=== PATIENT | male | born 1990 | race Caucasian/White ===

== ENCOUNTER 2018-06-02 03:33 | Emergency (ER) | payer MEDICAID ==
[~2018-06-02] VITALS: Ht 170.2 cm; Wt 61.2 kg
[2018-06-02 04:08] VITALS: BP_SYST 125
[2018-06-02 05:21] VITALS: BP_SYST 125
== END 2018-06-02 05:21 | disposition home or self-care (01) ==
LOC: SED 03:33
DX: J06.9 Acute upper respiratory infection, unspecified (principal)
CPT/HCPCS: 99283